=== PATIENT | male | born 1950 | race Caucasian/White ===

== ENCOUNTER → 2019-10-06 | Outpatient (CLI) | payer MEDICARE, BC ==
[~2019-10-06] MED LIST: ASPIRIN E.C. 8181 MG PO; CLARITIN 1010 MG/TAB PO; COZAAR 50MG50 MG/TAB PO; KLONOPIN2 MG PO; LEXAPRO20 MG PO; LIPITOR 10MG10 MG PO; VITAMIN D31000 I1 PO
== END ==
LOC: COL.CARD 11:42
DX: R55 Syncope and collapse (principal)